=== PATIENT | female | born 1995 | race Caucasian/White ===

== ENCOUNTER 2016-12-31 16:00 | Emergency (ER) | payer SELFPAY ==
[2016-12-31 16:03] VITALS: BP 124/79; PULSE 122; RESP 16; TEMP 102.2; O2SAT 99
== END 2016-12-31 19:40 | disposition left against medical advice (07) ==
LOC: NED 16:00
DX: R68.89 Other general symptoms and signs (principal)
CPT/HCPCS: 99281